=== PATIENT | male | born 1995 | race Two or more races ===

== ENCOUNTER → 2019-07-19 | Emergency (ER) | payer MEDICAID, OTHER ==
[~2019-07-19] VITALS: Ht 188 cm; Wt 117.9 kg
[~2019-07-19] MED LIST: CLON0.1T PO; GABA100C9 PO; KETOROLAC TROMETH 60MG/2ML VIAL IM ONE; RISP0.2512 PO
[2019-07-19 08:33] VITALS: BP 150/92
== END | disposition home or self-care (01) ==
LOC: EDUNIT# 08:10 → ER 08:18 → EDBD 08:18
DX: S22.42XA Multiple fractures of ribs, left side, initial encounter for closed fracture (principal); S00.81XA Abrasion of other part of head, initial encounter; S60.512A Abrasion of left hand, initial encounter; Z88.0 Allergy status to penicillin; Z88.5 Allergy status to narcotic agent; Z79.899 Other long term (current) drug therapy; V47.5XXA Car driver injured in collision with fixed or stationary object in traffic accident, initial encounter; Y93.89 Activity, other specified; Y92.410 Unspecified street and highway as the place of occurrence of the external cause; Y99.8 Other external cause status
CPT/HCPCS: 71101; 96372; 99283; J1885